=== PATIENT | female | born 1965 | race Caucasian/White ===

== ENCOUNTER → 2023-02-11 07:56 | Outpatient (CLI) | payer OTHER, SELFPAY ==
--- NOTE | ~2023-02-11 | US_ITS ---
Limited Abdominal Sonogram: Real-time sonographic imaging of the right upper quadrant was performed. Clinical History: Right upper quadrant pain Findings: The liver appears normal with no evidence of mass lesion or bile duct dilatation. Main por oz vein demonstrates normal direction of flow. The gallbladder is well distended. There is a polypoi d nonmobile masslike lesion extending to the gallbladder lumen measuring 1.5 x 0.8 cm in size. No pos terior shadowing. The common bile duct measures 4 mm. The visualized pancreas, aorta, and IVC are un remarkable. Impression: 1.5 x 0.8 cm polypoid masslike lesion extending to the gallbladder lumen. This could reflect large ga llbladder polyp. Adherent tumefactive sludge would be a potential alternative consideration. Consider follow-up exam. Reviewed, dictated and finalized at [facility]. Impression: 1.5 x 0.8 cm polypoid masslike lesion extending to the gallbladder lumen. This could reflect large gallbladder polyp. Adherent tumefactive sludge would be a p otential alternative consideration. Consider follow-up exam.
== END ==
PROVIDERS: PCP Family Medicine Adolescent Medicine; Visit Provider Nurse Practitioner Family
DX: R10.11 Right upper quadrant pain (principal); K82.9 Disease of gallbladder, unspecified
CPT/HCPCS: 76705

== ENCOUNTER 2023-03-07 07:37 | Outpatient (CLI) | payer OTHER, SELFPAY ==
--- NOTE | 2023-03-07 07:59 | ECG_ITS ---
Measurements Intervals Hood Rate: 72 P: -10 [place]: 139 QRS: 16 QRSD: 92 T: 48 QT: 391 QTc: 431 Interpretive Statements SINUS RHYTHM NO PREVIOUS ECG AVAILABLE FOR COMPARISON Electronically Signed On 03-07-2023 9:01:28 CDT by Felisha Lovelace M.D.
[2023-03-07 08:38] LABS: Alanine Aminotransferase 34 U/L (6-35); Albumin Level 4.7 g/dL (3.5-5.1); Alkaline Phosphatase 78 U/L (38-126); Amylase 56 U/L (30-110); Aspartate Amino Transferase 32 U/L (14-36); Bilirubin,Total 0.5 mg/dL (0.2-1.3); Lipase 72 U/L (23-300)
== END 2023-03-07 07:38 | disposition home or self-care (01) ==
LOC: ANHSURGERY 07:41
PROVIDERS: PCP Family Medicine Adolescent Medicine; Visit Provider Surgery
DX: K81.1 Chronic cholecystitis (principal); I10 Essential (primary) hypertension; I34.1 Nonrheumatic mitral (valve) prolapse; Z01.818 Encounter for other preprocedural examination
CPT/HCPCS: 36415; 80076; 82150; 83690; 86850; 86900; 86901; 93005

== ENCOUNTER 2023-03-13 00:47 | Day surgery (SDC) | payer OTHER, SELFPAY ==
[2023-03-04 14:05] VITALS: BMI 34.0
--- NOTE | 2023-03-04 14:15 | PC.NURSE ---
Report to the Outpatient Waiting Room, entrance under the green pavilion located off [facility], at time _1200_ on date _[id number]_. Planned Procedure Time: _2pm_. Time changes happen often and if your time is changed the preop area will call you the afternoon before. - You and your visitor will be asked to self-screen and do not enter if you have any COVID symptoms. - A mask is optional within the hospital at this time. Patients may have clear liquids (water, carbonated beverages, clear teas, apple juice) until 3 hours prior to surgery with a maximum of 20 ounces. - No food from midnight until time of surgery Take the following medications with a SIP of water the morning of surgery: ___None DO NOT STOP ANY OF YOUR OTHER PRESCRIPTION MEDICATIONS PRIOR TO SURGERY ?EXCEPT THE FOLLOWING Medications to discontinue per physician None Date to take last dose Please no make-up, nail lithuanian, hairspray, perfume, deodorant, or body powder the day of surgery. No jewelry (including any body piercings) or valuables the day of surgery, leave them at home. Please take a shower or bath the morning of, surgery with Hebiclense (chlorhexadine gluconate) an antibacterial soap. Wear comfortable, loose fitting clothing. - Jewelry must be removed prior to entering the operating room. Rings and piercings that are not removed may be cut off. - The hospital will not accept responsibility for valuables. - Please leave all valuables, including medications, at home the day of surgery. If you are going home after surgery, a licensed batch mixing truck driver must drive you home. - NO public transportation without another adult if you receive anesthesia. - We recommend that an adult stay with you for 24 hours following discharge. - We also recommend that you do not drive, make important decision, drink alcoholic beverages, or take any drugs that were not prescribed by your health care provider for at least 24 hours after your discharge time. Follow any additional instructions given to you from your surgeon. If you or anyone in your household have experienced Covid symptoms in the past week, please notify your surgeon or the nurse liaison at the phone number below for possible testing. Telephone instructions given to __Patient___and asked if any additional questions and then verbalized understanding. Patient advised to call surgeon office or pre surgery nurse liaison [phone] if any additional questions.
[2023-03-13] VITALS (8 sets, daily range): BP systolic 118–158; BP diastolic 60–90; PULSE 50–86; RESP 16–18; TEMP 36.4–36.6; O2SAT 96–100
[2023-03-13] MEDS: LACTATED RINGERS 1,000 ML 30 ML IV CONT ×3 (12:40→15:51)
--- NOTE | 2023-03-13 12:51 | WPDHPUPDATE1 ---
History and Physical Update Update Date/Time: 03/13/23 12:51 History and Physical has been reviewed, including an updated exam of the patient. There are NO changes in the patient's condition. Risks, benefits, and alternatives have been discussed and questions answered. Patient agrees to proceed with procedure.
[2023-03-13] MEDS: ACETAMINOPHEN 500 MG TABLET 1000 MG PO (13:19)
[2023-03-13] MEDS: KETOROLAC 15 MG/ML VIAL (*BKC) IV PUSH (13:25)
--- NOTE | 2023-03-13 13:29 | WPDANESEPPF ---
Anes - Initial Pre Proc Eval Procedure: Operation Date: 03/13/23 14:00 Proposed Procedures p Laparoscopic Cholecystectomy - Walt Gordon MD Date/Time: 03/13/23 13:29 Surgeon: Walt Gordon MD Pre Op Diagnosis: chronic cholecystitis, gall bladder polyp Patient Data Age: 58 Gender: F Height: 1.68 m Weight: 94.5 kg Allergies Allergy/AdvReac Type Severity Reaction Status Date / Time meperidine Allergy Unknown RASH, Verified 03/13/23 12:09 ITCHING morphine AdvReac Severe NAUSEA AND Verified 03/13/23 12:09 VOMITING Home Medications Medication Instructions Recorded Confirmed Type ibuprofen 200 mg tablet (IBU-200) 200 mg PO Q6H PRN Pain 01/15/22 03/04/23 History hyoscyamine sulfate 0.125 mg 0.125 mg PO DAILY #90 tabs 05/24/22 03/04/23 Rx disintegrating tablet pantoprazole 40 mg tablet,delayed 40 mg PO QAM #90 tabs 02/03/23 03/04/23 Rx release diazepam 2 mg tablet (Valium) 2 mg PO TID PRN muscle spasm #20 02/17/23 03/13/23 Rx tabs fluticasone propionate 50 1 spray intranasal DAILY 02/17/23 03/04/23 History mcg/actuation nasal spray,suspension (Allergy Relief (fluticasone)) acetaminophen 500 mg tablet 500 mg PO Q6H PRN Pain 03/04/23 03/04/23 History amoxicillin 875 mg tablet 875 mg PO Q12H 10 days #20 tabs 03/04/23 03/13/23 Rx atorvastatin 20 mg tablet 20 mg PO DAILY Anxiety 03/04/23 03/04/23 History lisinopril 5 mg tablet 5 mg PO DAILY #90 tabs 03/05/23 03/13/23 Rx Patient hx anesthesia problems: none Family hx anesthesia problems: none Results Review: All pre-operative results and documents have been reviewed as part of the pre-operative evaluation. [facility], [facility] Past Medical History Medical History Gastro-esophageal reflux disease without esophagitis Irritable bowel syndrome with diarrhea Mitral valve prolapse Thyroid disorder screening Surgical History Surgical History History of back surgery (1998) x2 History of repair of pyloric stenosis (1962) History of total right knee replacement (2016) Family History Family History Father Acute myocardial infarction Carcinoma of colon Colon polyp Heart disease Hypertension Lymphoma Grandparent Breast cancer Diabetes mellitus Other Carcinoma of colon Colon polyp Mother Depression Alzheimer's dementia Social History Social History Smoking packs per day: 0.5 Smoking cigarettes per day: 10.0 Years smoked: 20 Smoking pack-years: 10.00 Smoking status: Former smoker Tobacco type: cigarettes Second hand tobacco smoke exposure: No Smoking end date: 02/13/23 Alcohol intake: current Drinks per week: 14 Alcohol use details: Occasionally Substance use: never Substance use type: does not use Lack of Transportation: No Lack of Food: Never True Current Housing: I Have Housing Concerned About Future Housing: No Difficulty Paying Gas/Electric Bills: No Difficulty Paying for Meds: No Currently Unemployed: No Education: Associate Degree Difficulty w/ Childcare or Family Care: No Living arrangements: with family Occupation/Education: occupation Gender identity (if verbalized by the patient): Female Sexual Orientation (if Verbalized by the Patient): Straight or Heterosexual Spiritual care concerns: No Agree to blood products: Yes Anes - Eval Final PreProcedure Day of Procedure 03/13/23 13:29 Patient weight: obese Heart: regular rate and rhythm Lungs: clear to auscultation Airway: Mallampati scale class II Neurological: alert and oriented Last oral intake: >/= 8 hours ASA classification: III Emergent: no Anesthesia type and monitoring: general ETT and standard monitoring Results Review: All pre-operative results and doc
[2023-03-13] MEDS: ceFAZolin 2 GM/D5W 50 ML 2 GM/50 ML BAG IVPB (14:15)
[2023-03-13] MEDS: BUPIVACAINE/EPINEPHRINE 0.5% 30 ML VIAL INFILTRATE (15:10)
[2023-03-13] MEDS: fentaNYL CITRATE INJ (*CRX) 100 MCG/2 ML VIAL 25 MCG IV PUSH ×4 (15:45→16:14)
[2023-03-13] MEDS: ONDANSETRON INJ 4 MG/2 ML VIAL IV PUSH (16:32)
--- NOTE | 2023-03-13 16:38 | W.PM.PROC2 ---
Procedure Note - Detailed Date of Procedure 03/13/23 Pre-op Diagnosis chronic cholecystitis, gall bladder polyp Post-op Diagnosis Same Procedure Performed Laparoscopic cholecystectomy Surgeon Walt Gordon MD Diversity Manager Michael ROCA Anesthesia General and Local (0.5% Marcaine with epinephrine) Indications Patient is a 58-year-old woman who has noticed some fullness in the right upper quadrant after eating. The fullness is uncomfortable if not painful. She has a scar there from treatment of pyloric stenosis as an infant. She thought she had a hernia. She had an ultrasound of the abdomen which showed a 1.5 cm gallbladder polyp. She is taken to surgery now for laparoscopic cholecystectomy for gallbladder polyp and chronic cholecystitis. Findings There was some edema and some mild wall thickening of the gallbladder. No stones were noted. No obvious polyp was seen. There was no evidence of gallbladder malignancy. It was no biliary ductal dilatation or liver abnormalities. Description of Procedure Patient was taken to surgery and induced into general anesthesia. The abdomen is prepped and draped. The initial epigastric trocar was attempted to be placed as an applied Medical optical trocar. However we ran into some adhesions that made me concerned the adhesions may be associated with her previous surgery for pyloric stenosis. I abandoned this approach and then infiltrated local in the left subcostal position. An optical trocar was advanced into the peritoneal cavity in this position. Intraperitoneal location was noted. Although some air was present in the falciform ligament, there was no evidence of any untoward injury from the previous placement of trocar. We then placed the right lower quadrant 5 mm port under direct visualization. The epigastric as well as the other 2 5 mm trocars were placed under direct visualization in the usual location. Left subcostal trocar was removed and used as it typically is. I closed the trocar site incision with a 3-0 Vicryl to temporarily occlude it. Some adhesions to the gallbladder and the right lobe of the liver were then taken down sharply. Cautery was used for hemostasis. I then used a laparoscopic aspirator and punctured the gallbladder. The gallbladder was decompressed using the aspirator. The cholecystotomy was closed with a Vicryl endoloop. There was no leakage of bile or gallbladder content from the aspiration. We then retracted the gallbladder anterosuperiorly. Dissection was carried out in the cholecystohepatic triangle. The cystic duct and cystic artery were clearly identified. The gallbladder was dissected off the liver at its lower 3rd. Critical view was achieved. I then securely clipped and divided the cystic duct and cystic artery. The gallbladder was dissected free of its remaining peritoneal attachments to the liver. No entry into the gallbladder was made during this dissection. The gallbladder was then placed in an Endo-Catch bag retrieved through the 10 11 epigastric trocar site. I replaced the epigastric trocar and then we reviewed the areas of dissection. Irrigation and suctioning were carried out. There was no evidence of bleeding or bile leakage. We then evacuated CO2 and removed the trocar sleeves. Skin wounds were closed over all 5 trocar sites with subcuticular 4-0 Monocryl skin suture. The wounds were dressed with Exofin surgical adhesive. The patient was awakened and taken to recovery in good condition. Sponge and needle counts were correct x2. Estimated Blood Loss -10 Drains No Packing No Pathology Yes (Gallbladder) Complications No immediate complications Condition Stable Disposition PACU [facility] Billing Surgery - Charge Forward: Surgery Billing (Laparoscopic cholecystectomy)
[2023-03-13] MEDS: oxyCODONE HCL (*CRX) 5 MG TAB IR PO (16:59)
== END 2023-03-13 17:35 | disposition home or self-care (01) ==
PROVIDERS: PCP Family Medicine Adolescent Medicine; Visit Provider Surgery
PROC: 0FT44ZZ Resection of Gallbladder, Percutaneous Endoscopic Approach (ICD-10-PCS; CPT 47562; principal; 2023-03-13 14:00)
DX: K80.10 Calculus of gallbladder with chronic cholecystitis without obstruction (principal); K21.9 Gastro-esophageal reflux disease without esophagitis; I34.1 Nonrheumatic mitral (valve) prolapse; I10 Essential (primary) hypertension; K58.0 Irritable bowel syndrome with diarrhea; Z79.51 Long term (current) use of inhaled steroids; Z87.19 Personal history of other diseases of the digestive system; Z87.891 Personal history of nicotine dependence; E66.9 Obesity, unspecified; Z68.33 Body mass index [BMI] 33.0-33.9, adult
CPT/HCPCS: 47562; 36415; 80076; 82150; 83690; 86850; 86900; 86901; 88304; 93005; A9270; C1713; J0690; J1100; J1885; J2405; J2704; J2710; J3010; J7120

== ENCOUNTER → 2023-06-13 08:00 | Outpatient (CLI) | payer OTHER, SELFPAY ==
--- NOTE | ~2023-06-13 | XR_ITS ---
Cervical Spine: AP, lateral, open-mouth views Clinical History: Pain Findings: The normal lordotic curve is maintained. No fracture seen. There is minimal grade 1 retroli sthesis of C5 over C6. The intervertebral disc spaces are well maintained. Pre-vertebral soft tissues are unremarkable. Impression: Minimal grade 1 retrolisthesis of C5 over C6. Reviewed, dictated and finalized at [facility]. ECONOMIST Impression: Minimal grade 1 retrolisthesis of C5 over C6.
== END ==
PROVIDERS: PCP Nurse Practitioner Family; Visit Provider Nurse Practitioner Family
DX: M54.2 Cervicalgia (principal)
CPT/HCPCS: 72040

== ENCOUNTER 2023-06-21 08:53 | Emergency (ER) | payer OTHER, SELFPAY ==
[2023-06-21 09:22] VITALS: BP 149/91; PULSE 72; RESP 14; TEMP 36.7; O2SAT 100
--- NOTE | 2023-06-21 09:36 | ED.SKABFB ---
HPI - Skin/Abscess/Foreign Bdy General Chief complaint: Skin/Abscess/Foreign Body Stated complaint: Scalp and Face Irritation/Rash Time Seen by Provider: 06/21/23 09:42 Source: patient and RN notes reviewed Mode of arrival: ambulatory Limitations: no limitations History of Present Illness HPI narrative: 58-year-old female presents with concern for a rash on her scalp in her face. She reports yesterday she noticed 2 bumps on her scalp that were occasionally painful. She reports this morning she noticed a rash on her forehead above her left eye. She denies involvement on her eyelid or eye. She denies vision changes or eye pain. She reports she has a prescription for 500 mg valacyclovir for genital herpes which she took this morning. MD complaint: rash Related Data Home Medications Medication Instructions Recorded Confirmed ibuprofen 200 mg tablet (IBU-200) 200 mg PO Q6H PRN Pain 01/15/22 06/21/23 acetaminophen 500 mg tablet 500 mg PO Q6H PRN Pain 03/04/23 06/21/23 atorvastatin 20 mg tablet 20 mg PO DAILY Anxiety 03/04/23 06/21/23 pantoprazole 40 mg tablet,delayed 40 mg PO .PRN 05/27/23 06/21/23 release Allergies Allergy/AdvReac Type Severity Reaction Status Date / Time meperidine Allergy Unknown RASH, Verified 06/21/23 09:40 ITCHING Review of Systems Review of Systems: CONSTITUTIONAL: Denies malaise, chills, sweats, or fever. EYES: Denies redness, or discharge. CARDIOVASCULAR: Denies chest pain, palpitations, or edema. RESPIRATORY: Denies cough or dyspnea. GASTROINTESTINAL: Denies abdominal pain, nausea, vomiting SKIN: Reports rash on the scalp and forehead MUSCULOSKELETAL: Denies joint pain or myalgia. NEUROLOGIC: Denies headache. All systems reviewed & are unremarkable except as noted in HPI and below [facility] Past Medical History Medical History Gastro-esophageal reflux disease without esophagitis Irritable bowel syndrome with diarrhea Mitral valve prolapse Thyroid disorder screening Surgical History Surgical History History of back surgery (1998) x2 History of cholecystectomy (02/2023) History of repair of pyloric stenosis (1963) History of total right knee replacement (2016) Family History Family History Father Acute myocardial infarction Carcinoma of colon Colon polyp Heart disease Hypertension Lymphoma Grandparent Breast cancer Diabetes mellitus Other Carcinoma of colon Colon polyp Mother Depression Alzheimer's dementia Social History Social History Smoking packs per day: 0.5 Smoking cigarettes per day: 10.0 Years smoked: 20 Smoking pack-years: 10.00 Smoking status: Former smoker Tobacco type: cigarettes Second hand tobacco smoke exposure: No Smoking end date: 02/13/23 Alcohol intake: current Drinks per week: 14 Alcohol use details: Occasionally Substance use: never Substance use type: does not use Lack of Transportation: No Lack of Food: Never True Current Housing: I Have Housing Concerned About Future Housing: No Difficulty Paying Gas/Electric Bills: No Difficulty Paying for Meds: No Currently Unemployed: No Education: Associate Degree Difficulty w/ Childcare or Family Care: No Living arrangements: with family Occupation/Education: occupation Gender identity (if verbalized by the patient): Female Sexual Orientation (if Verbalized by the Patient): Straight or Heterosexual Spiritual care concerns: No Agree to blood products: Yes Comments At time of signature, agree with nursing past medical, surgical, social and family history. There is no relevant family history pertinent to the presenting complaint Exam Narrative: GENERAL: Well-appearing, well-nourished, and in no acute
== END 2023-06-21 10:00 | disposition home or self-care (01) ==
PROVIDERS: Emergency Provider Nurse Practitioner; PCP Nurse Practitioner Family
DX: B02.9 Zoster without complications (principal); Z79.899 Other long term (current) drug therapy; Z79.1 Long term (current) use of non-steroidal anti-inflammatories (NSAID); Z87.891 Personal history of nicotine dependence
CPT/HCPCS: 99213; G0463